=== PATIENT | female | born 1945 | race Caucasian/White ===

== ENCOUNTER → 2020-07-08 13:14 | Outpatient (CLI) | payer MEDICARE, SELFPAY ==
--- NOTE | ~2020-07-08 | MM_ITS ---
EXAMINATION: MM screening [facility] BI w virgilio HISTORY: Screening TECHNIQUE: Craniocaudal and mediolateral oblique 3-D tomosynthesis images were obtained and synthetic 2-D images were generated. CAD analysis was submitted and interpreted. COMPARISON: Comparison to multiple prior studies sequentially, with oldest reviewed study dated 12/24. BREAST PARENCHYMAL COMPOSITION: There are scattered areas of fibroglandular density. FINDINGS: There is no evidence of suspicious mass, calcification, or architectural distortion to sugg est malignancy in either breast. There has been no suspicious interval change. IMPRESSION: 1. No mammographic evidence of malignancy. 2. Recommend routine screening mammography in one year. BI-RADS Category 1: Negative Reviewed, dictated and finalized at location A.
--- NOTE | ~2020-07-08 | DEXA_ITS ---
Bone Density Report Name: Dayana Mota Age: 75 Sex: Female Ethnicity: White Date of : 1945 Indication: postmenopausal; screening for osteoporosis; height loss; hysterectomy; Referring Provider: DANIEL POLANCO Study: Bone densitometry was performed. Exam Date: July 08, 2020 Accession number: [id number] Bone Density: Region BMD T-score Z-score Classification AP Spine (L3, L4) 1.340 2.2 4.7 Normal Femoral Neck (Left) 0.811 -0.3 1.7 Normal Total Hip (Left) 1.007 0.5 2.3 Normal Femoral Neck (Right) 0.772 -0.7 1.3 Normal Total Hip (Right) 0.928 -0.1 1.6 Normal Total Hip Mean 0.968 0.2 2.0 Normal World Health Organization criteria for BMD impression classify patients as: Normal (T-score at or above -1.0), Osteopenia (T-score between -1.0 and -2.5), or Osteoporosis (T-score at or below -2.5). 10-year Fracture Risk: FRAX not reported because: All T-scores for Spine Total, Hip Total, Femoral Neck at or above -1.0 Previous Exams: Region Exam Age BMD T-score BMD Change BMD Change Date g/cm2 vs Baseline vs Previous AP Spine(L3, L4) 07/08/2020 75 1.340 2.2 0.013 -0.085* 01/15/2016 70 1.425 2.9 0.098* 0.052* 11/14/2012 67 1.373 2.5 0.046* 0.082* 10/15/2009 64 1.291 1.7 -0.036* -0.036* 09/28/2006 61 1.327 2.1 Total Hip(Left) 07/08/2020 75 1.007 0.5 0.067* -0.029* 01/15/2016 70 1.036 0.8 0.096* 0.019 11/14/2012 67 1.017 0.6 0.077* 0.007 10/15/2009 64 1.010 0.6 0.070* 0.070* 09/28/2006 61 0.940 0.0 Total Hip(Right) 07/08/2020 75 0.928 -0.1 0.019 -0.023 01/15/2016 70 0.951 0.1 0.042* -0.012 11/14/2012 67 0.964 0.2 0.054* -0.009 10/15/2009 64 0.973 0.3 0.063* 0.063* 09/28/2006 61 0.909 -0.3 *Denotes significance at 95% confidence level, LSC for AP Spine = 0.022 g/cm2, LSC for Total Hip = 0.027 g/cm2 Clinical Information Provided by Patient: Has the following medical conditions: Hysterectomy Patient maximum height was 67.8 Menopause Age: 37 Drinks caffeinated beverages Onset of menses at age 12 Number of children 0 Missed period for more than 6 months in a row Impression: The patient has normal bone mass. The BMD for the AP Spine(L3, L4)
== END ==
PROVIDERS: Visit Provider Obstetrics & Gynecology Gynecology
DX: Z12.31 Encounter for screening mammogram for malignant neoplasm of breast (principal); Z78.0 Asymptomatic menopausal state
CPT/HCPCS: 77063; 77067; 77080

== ENCOUNTER 2020-07-29 17:23 | Emergency (ER) | payer MEDICARE, SELFPAY ==
[2020-07-29 17:29] VITALS: BP 149/91; PULSE 123; RESP 22; TEMP 36.4; O2SAT 100
[2020-07-29 17:33] VITALS: PULSE 125
--- NOTE | 2020-07-29 17:46 | ED.GENADULT ---
HPI - General Adult General Chief complaint: Unspecified Stated complaint: nosebleed Time Seen by Provider: 07/29/20 17:35 History of Present Illness HPI narrative: Seen at urgent yesterday for a nose bleed. She had it packed with gauze and the bleeding was controled. She was planning to go back today to have the packing removed, but she began bleeding again. At the time of my evaluation she has minimal bleeding with the pack still in place. She is not on any blood thinners. She is a jahova's witness and does not want to receive any blood products Related Data Home Medications Medication Instructions Recorded Confirmed ascorbic acid (vitamin C) 500 mg 1,000 mg PO cap 12/04/19 06/03/20 capsule aspirin 81 mg tablet,delayed 81 mg PO DAILY 12/04/19 06/03/20 release cetirizine 10 mg tablet 5 mg PO DAILY PRN 12/04/19 06/03/20 psyllium seed (sugar) 1 tbsp PO DAILY 12/04/19 06/03/20 cholecalciferol (vitamin D3) 10 10 mcg PO DAILY 07/30/20 mcg (400 unit) capsule acetaminophen 325 mg capsule 325 mg PO Q6H PRN 08/01/20 Allergies Allergy/AdvReac Type Severity Reaction Status Date / Time hydrochlorothiazide Allergy Unknown hyponatremi Verified 08/01/20 11:13 a latex Allergy Unknown Skin Verified 08/01/20 11:13 Reaction lisinopril Allergy Unknown cough Verified 08/01/20 11:13 potassium iodide Allergy Unknown cough Verified 08/01/20 11:13 Review of Systems Review of Systems: All systems reviewed & are unremarkable except as noted in HPI and below Constitutional: Constitutional: Denies fever(s) and Denies weakness ENT: Reports dizziness Cardiovascular: Cardiovascular: Denies chest pain Respiratory: Respiratory: Denies dyspnea Gastrointestinal: Gastrointestinal: Denies nausea and Denies vomiting Neurologic: Denies syncope and Denies weakness Hematologic/Lymphatic: Hematologic/Lymphatic: Denies easy bleeding and Denies easy bruising PMFSH Past Medical History Medical History History of mammogram (~01/19/17) History of measles History of varicella Ovarian cyst (~1971) Wears glasses Surgical History Surgical History History of appendectomy History of hysterectomy (~1980) Family History Family History Mother Diabetes mellitus, Onset Age: 69 Family history of multiple sclerosis Sibling Depression Father Hypertension Acute myocardial infarction, Onset Age: 72 Cerebrovascular accident Grandparent Carcinoma of colon Family history of malignant neoplasm of uterus Social History Social History Smoking status: Never smoker Alcohol intake: current Gender identity (if verbalized by the patient): Female Exam Const: General: healthy appearing, no acute distress and alert Orientation/consciousness: patient oriented x3 HENMT: Other: Gauze packing in place with minimal bleeding Resp: Effort & Inspection: normal respiratory effort Auscultation: clear to auscultation bilaterally Cardio: Rate: tachycardic Rhythm: regular rhythm Skin: General skin exam: normal color Neuro: General: patient oriented x3, moves all extremities and CN's II-XI intact bilaterally Speech: normal speech Extrem: General: normal to inspection Course Vital Signs Vital signs: Vital Signs Temperature 36.4 C L 07/29/20 17:29 Pulse Rate 123 H 07/29/20 17:29 Respiratory Rate 22 H 07/29/20 17:29 Blood Pressure 149/91 H 07/29/20 17:29 Pulse Oximetry 100 07/29/20 17:29 Temperature 36.4 C L 07/29/20 17:29 Pulse Rate 106 H 07/29/20 19:15 Respiratory Rate 16 07/29/20 19:15 Blood Pressure 146/86 H 07/29/20 19:15 Pulse Oximetry 99 07/29/20 19:15 Procedures Epistaxis Control right: Nose Prepped With: oxymetazoline Epistaxis Control Yemi
[2020-07-29 18:45] VITALS: BP 130/79; PULSE 107; RESP 12; O2SAT 97
[2020-07-29 19:15] VITALS: BP 146/86; PULSE 106; RESP 16; O2SAT 99
== END 2020-07-29 19:55 | disposition home or self-care (01) ==
PROVIDERS: Emergency Provider Emergency Medicine; PCP Family Medicine
DX: R04.0 Epistaxis (principal)
CPT/HCPCS: 99283; A9270

== ENCOUNTER 2020-07-30 04:09 | Emergency (ER) | payer MEDICARE, SELFPAY ==
[2020-07-30 04:16] VITALS: BP 91/52; PULSE 135; RESP 21; TEMP 36.3; O2SAT 97
--- NOTE | 2020-07-30 04:20 | PC.NURSE ---
during PIV administration pt states she is starting to become dizzy and lightheaded. pt placed in trendelenburg at bedside. fluids initiated at this time. pt noted to be hypotensive and tachycardic. pt responsive to fluids and position change. rhino rocket placed by
[2020-07-30] MEDS: SODIUM CHLORIDE 0.9% IV 1,000 ML 999 ML (05:08)
--- NOTE | 2020-07-30 05:08 | PC.NURSE ---
fluids administered per MD verbal order
[2020-07-30 05:13] LABS: Basophils Percent Auto 0.4 % (0.2-1.2); Eosinophils Absolute Auto 0.1 K/mm3 (0-0.3); Eosinophils Percent Auto 0.7 % (0-4.4); Hematocrit 27.3 % (37.0-47.0); Hemoglobin 9.3 g/dL (12.0-15.0); Immature Granulocyte Absolute 0.04 K/mm3 (0.00-0.031); Immature Granulocyte Percent A 0.5 % (0-0.5); Lymphocytes Absolute Auto 1.88 K/mm3 (0.9-3.2); Lymphocytes Percent Auto 22.7 % (18.3-44.2); Mean Corpuscular HGB Conc 34.1 g/dl (32-36); Mean Corpuscular Hemoglobin 30.8 pg (26-34); Mean Corpuscular Volume 90.4 fl (80-100); Mean Platelet Volume 8.7 fl (7.4-10.4); Monocytes Absolute Auto 0.6 K/mm3 (0.1-0.6); Monocytes Percent Auto 6.6 % (2.6-8.5); Neutrophils Absolute Auto 5.7 K/mm3 (1.3-6.7); Neutrophils Percent Auto 69.1 % (45.5-73.1); Platelet Count Result 232 k/mm3 (150-375); Red Blood Count 3.02 M/mm3 (4.2-5.4); Red Cell Distribution Width 12.5 % (11.5-14.5); White Blood Count 8.3 K/mm3 (4.5-10.0)
--- NOTE | 2020-07-30 05:16 | PC.NURSE ---
pt states bleeding is minimal at this time. c/o minimal drainage in back of throat. vs remain stable. pt hooked up to monitor, will continue to monitor pt for baseline status changes.
[2020-07-30 05:25] LABS: INR 1.1; Prothrombin Time 14.2 Seconds (11.1-14.7)
[2020-07-30 05:26] LABS: Partial Thromboplastin Time 29.4 SECONDS (22.3-36.8); Potassium 4.1 mmol/L (3.4-5.0)
[2020-07-30 05:50] LABS: Anion Gap 7 mmol/L (8-16); Blood Urea Nitrogen 24 mg/dL (7-17); Calcium 8.6 mg/dL (8.4-10.2); Carbon Dioxide 23 mmol/L (22-30); Chloride 101 mmol/L (98-107); Estimated CRCL calculation 56 ml/min; Estimated Glomerular Filt Rate > 60; Glucose 120 mg/dL (65-105); Sodium 131 mmol/L (137-145)
[2020-07-30 05:54] VITALS: BP 128/70; BP 136/68; PULSE 100; PULSE 106
[2020-07-30] MEDS: SODIUM CHLORIDE 0.9% IV 1,000 ML 999 ML IV CONT (05:54)
[2020-07-30 05:55] VITALS: BP 110/67; PULSE 114
[2020-07-30 06:17] VITALS: BP 142/84; PULSE 102; RESP 18; O2SAT 100
--- NOTE | 2020-07-30 06:35 | ED.EPISTAXIS ---
HPI - Epistaxis General Chief complaint: Epistaxis Stated complaint: nose bleed Time Seen by Provider: 07/30/20 04:53 History of Present Illness HPI Narrative: Patient is a 75-year-old female who presents ER with epistaxis. Patient reports her nosebleed began on 07/27/2020. It worsened on the and continued into 29 July. She had packing of the anterior right nostril performed on 07/28 in urgent care. She was seen yesterday evening in the ER for continued trickling from her nose. She was given referral to ENT. Bleeding increased this evening and she had a large expulsion of blood from her mouth and nose so she opted to come to the ER again. Related Data Home Medications Medication Instructions Recorded Confirmed ascorbic acid (vitamin C) 500 mg 1,000 mg PO cap 12/04/19 06/03/20 capsule aspirin 81 mg tablet,delayed 81 mg PO DAILY 12/04/19 06/03/20 release cetirizine 10 mg tablet 5 mg PO DAILY PRN 12/04/19 06/03/20 ibuprofen 200 mg tablet 200 mg PO Q6H PRN 12/04/19 06/03/20 psyllium seed (sugar) 1 tbsp PO DAILY 12/04/19 06/03/20 Allergies Allergy/AdvReac Type Severity Reaction Status Date / Time hydrochlorothiazide Allergy Unknown hyponatremi Verified 07/29/20 17:33 a latex Allergy Unknown Skin Verified 07/29/20 17:33 Reaction lisinopril Allergy Unknown cough Verified 07/29/20 17:33 potassium iodide Allergy Unknown cough Verified 07/29/20 17:33 Review of Systems ENT: Reports epistaxis and Denies nasal congestion Respiratory: Respiratory: Denies cough and Denies dyspnea Gastrointestinal: Gastrointestinal: Denies abdominal pain, Denies diarrhea, Denies nausea and Denies vomiting Neurologic: Reports dizziness PMFSH Past Medical History Medical History (Updated 07/30/20 @ 07:22 by David Willett MD) History of mammogram (~01/19/17) History of measles History of varicella Ovarian cyst (~1971) Wears glasses Surgical History Surgical History (Updated 12/04/19 @ 14:07 by Felicity Hernandez [facility]) History of appendectomy History of hysterectomy (~1980) Family History Family History (Updated 02/20/18 @ 14:29 by DOCTOR UNKNOWN) Mother Diabetes mellitus, Onset Age: 69 Family history of multiple sclerosis Sibling Depression Father Hypertension Acute myocardial infarction, Onset Age: 72 Cerebrovascular accident Grandparent Carcinoma of colon Family history of malignant neoplasm of uterus Social History Social History Smoking status: Never smoker Alcohol intake: current Gender identity (if verbalized by the patient): Female Exam Narrative: Exam Narrative: GENERAL: ill-appearing, well-nourished, and in moderate distress. HEAD: Normocephalic, atraumatic. EYES: PERRLAand EOMI. ENT: Mucous membranes moist. Right nostril packed with slight oozing. There is a oozing coming from the left nostril as well. CHEST: Clear to auscultation. No respiratory distress. HEART: Tachycardic and regular. Normal peripheral pulses.. EXTREMITIES: Normal range of motion. No edema. SKIN: Warm, diaphoretic, no rash. NEURO: Alert and oriented x3. Course Course Emergency Course: Patient received 1 L IV fluid. She was orthostatic afterwards. Additional liter ordered. Reevaluation(s) Reevaluation #1: Patient resting comfortably. No recurrence of bleeding after Rhino Rocket placement. Has received 2 L of IV fluid. I discussed case with Dr. Chavez with ENT. He is aware of patient's presentation, work-up, and intervention. He recommends patient be seen in his office today. Discussed treatment plan with patient she is verbalized understanding and is comfortable with that plan. Date: 07/30/20 Time: 07:17 Vital Signs Vital signs: Vital Signs Temperature 97.3 F L 07/30/20 04:16 Pulse Rate 135 H 07/30/20 04:16 Respiratory Rate 21 H 07/30/20 04:16 Blood Pressure 91/52 L 07/30/20 04:16 Pulse Oximetry 97 07/30/20 04:16 Temperature 97.3 F L 07/30/20 04:16 Pulse
--- NOTE | 2020-07-30 06:55 | PC.NURSE ---
assisted pt to restroom at this time. pt denies dizziness. ambulates with steady gait.
[2020-07-30 06:56] VITALS: BP 127/75; PULSE 105; RESP 17; O2SAT 100
[2020-07-30 07:40] VITALS: BP 144/83; PULSE 104; RESP 19; O2SAT 97
--- NOTE | 2020-07-30 10:34 | ECG_ITS ---
Measurements Intervals [place] Rate: 109 P: 52 ND: 144 QRS: 28 QRSD: 114 T: 54 QT: 320 QTc: 432 Interpretive Statements SINUS TACHYCARDIA INTRAVENTRICULAR CONDUCTION DELAY BORDERLINE ST ABNORMALITY- ANTEROLAT/INF LEADS ABNORMAL ECG Electronically Signed On 07-30-2020 10:44:47 CDT by Ashutosh Avery D.O.
== END 2020-07-30 07:40 | disposition home or self-care (01) ==
PROVIDERS: Emergency Provider Emergency Medicine; PCP Family Medicine
DX: R04.0 Epistaxis (principal); R00.0 Tachycardia, unspecified; I45.9 Conduction disorder, unspecified; R94.31 Abnormal electrocardiogram [ECG] [EKG]
CPT/HCPCS: 30901; 36415; 80048; 85025; 85610; 85730; 86850; 86900; 86901; 93005; 99283; J7030

== ENCOUNTER → 2021-03-25 09:56 | Outpatient (CLI) | payer MEDICARE, SELFPAY ==
--- NOTE | ~2021-03-25 | XR_ITS ---
XR abdomen/kub 1V 03/25/2021 10:49 INDICATION: Microscopic hematuria TECHNIQUE: KUB COMPARISON: None FINDINGS: Bowel gas pattern is normal. There is no evidence of free air, mass, organomegaly, ascites or obstruction. No abnormal calculi are seen. The bones appear intact. Moderate lumbar spondylosis . IMPRESSION: 1: No acute abdominal abnormality identified. Reviewed, dictated and finalized at location B.
--- NOTE | ~2021-03-25 | CT_ITS ---
EXAMINATION: CT abdomen pelvis wo/w con DATE: 03/25/2021 10:49 INDICATION: Microscopic hematuria TECHNIQUE: Computed tomography (CT) of the abdomen and pelvis was performed without and with 130 cc O mnipaque 350 intravenous contrast. The dose-length product was 1700.18 mGy-cm. Automated exposure con trol and iterative reconstruction technique were employed. COMPARISON: None. FINDINGS: There are liver and right renal cysts. Lung bases unremarkable. There is atherosclerosis wi thout evidence for aneurysm. Colonic diverticulosis without evidence for diverticulitis. Fatty infiltration of the liver. There are gallstones. Calcified granulomas of the spleen. The pancre as, adrenal glands and left kidney are unremarkable. Ureters are normal in course and caliber. Bladde r is unremarkable. Nonobstructive bowel gas pattern. No free air or free fluid. There is an 11 mm lef t lower lobe nodule containing calcification and possible macroscopic fat, most likely benign calcifi ed granuloma or hamartoma. No lymphadenopathy. IMPRESSION: 1. No findings to account for hematuria. 2: Cholelithiasis. 3: Hepatic steatosis. Reviewed, dictated and finalized at location B.
[2021-03-25 10:26] LABS: Estimated Glomerular Filt Rate > 60
== END ==
PROVIDERS: PCP Family Medicine; Visit Provider Urology
DX: R31.29 Other microscopic hematuria (principal); K80.20 Calculus of gallbladder without cholecystitis without obstruction; K76.0 Fatty (change of) liver, not elsewhere classified
CPT/HCPCS: 74018; 74178; Q9967

== ENCOUNTER → 2021-04-10 02:32 | Outpatient (CLI) | payer MEDICARE, SELFPAY ==
[2021-04-10 19:36] LABS: SARS-CoV-2 RNA PCR Negative
== END ==
PROVIDERS: PCP Family Medicine; Visit Provider Internal Medicine Gastroenterology
DX: Z01.812 Encounter for preprocedural laboratory examination (principal); Z20.822 Contact with and (suspected) exposure to COVID-19
CPT/HCPCS: C9803; U0003; U0005

== ENCOUNTER 2021-04-13 02:01 | Day surgery (SDC) | payer MEDICARE, SELFPAY ==
[2021-03-31 15:02] VITALS: BMI 28.8
[2021-04-13 06:34] VITALS: BP 156/81; PULSE 111; RESP 18; TEMP 36.2; O2SAT 98; BMI 28.3
[2021-04-13] MEDS: LACTATED RINGERS 1,000 ML 150 ML IV CONT (06:48)
--- NOTE | 2021-04-13 07:22 | WPDANESEPPF ---
Anes - Initial Pre Proc Eval Procedure: Operation Date: 04/13/21 07:30 Proposed Procedures p Screening Colonoscopy - Santos Ribera MD Date/Time: 04/13/21 07:22 Surgeon: Santos Ribera MD Pre Op Diagnosis: Neoplasm Screening Patient Data Age: 75 Gender: F Height: 5 ft 5 in Weight: 77.4 kg Last Vital Signs Temp 97.1 F L 04/13/21 06:34 Pulse 111 H 04/13/21 06:34 Resp 18 04/13/21 06:34 BP 156/81 H 04/13/21 06:34 Pulse Ox 98 04/13/21 06:34 Allergies Allergy/AdvReac Type Severity Reaction Status Date / Time hydrochlorothiazide Allergy Unknown hyponatremi Verified 04/13/21 06:31 a latex Allergy Unknown Skin Verified 04/13/21 06:31 Reaction lisinopril Allergy Unknown cough Verified 04/13/21 06:31 potassium iodide Allergy Unknown cough Verified 04/13/21 06:31 aspirin AdvReac recurrent Verified 04/13/21 06:31 [From [facility]] nose bleeds: packing, cautery Home Medications Medication Instructions Recorded Confirmed Type cetirizine 10 mg tablet 5 mg PO DAILY PRN 12/04/19 04/13/21 History psyllium seed (sugar) oral powder 1 tbsp PO DAILY 12/04/19 04/13/21 History metoprolol succinate 50 mg 50 mg PO DAILY #90 tablet 05/06/20 04/13/21 Rx tablet,extended release 24 hr cholecalciferol (vitamin D3) 10 10 mcg PO DAILY 07/30/20 04/13/21 History mcg (400 unit) capsule acetaminophen 325 mg capsule 325 mg PO Q6H PRN 08/01/20 04/13/21 History ascorbic acid (vitamin C) 1,000 mg 1 g PO DAILY 12/09/20 04/13/21 History tablet spironolactone 50 mg tablet 50 mg PO DAILY #90 tablet 12/09/20 04/13/21 Rx sodium,potassium,mag sulfates See Rx Instructions .ROUTE 12/18/20 Rx [Suprep Bowel Prep Kit] .COMPLEX #1 ml Patient hx anesthesia problems: none Family hx anesthesia problems: none PMFSH Past Medical History Medical History (Updated 12/09/20 @ 11:45 by Jake Kim PA-C) History of mammogram (~01/19/17) History of measles History of varicella Obesity (BMI 30.0-34.9) Ovarian cyst (~1971) Wears glasses Surgical History Surgical History History of appendectomy History of hysterectomy (~1980) Family History Family History Mother Diabetes mellitus, Onset Age: 69 Family history of multiple sclerosis Sibling Depression Father Hypertension Acute myocardial infarction, Onset Age: 72 Cerebrovascular accident Grandparent Carcinoma of colon Family history of malignant neoplasm of uterus Social History Social History Smoking status: Never smoker Alcohol intake: current Substance use type: does not use Living arrangements: with family Gender identity (if verbalized by the patient): Female Spiritual care concerns: No Anes - Eval Final PreProcedure Day of Procedure 04/13/21 07:22 Patient weight: normal Heart: regular rate and rhythm Lungs: clear to auscultation Airway: Mallampati scale class II Neurological: alert and oriented Last oral intake: >/= 8 hours ASA classification: II Emergent: no Anesthetic plan: proceed Anesthesia type and monitoring: general GIVS and standard monitoring Informed Consent: The patient's anesthetic plan and its attendant risks and benefits were discussed with the patient/family/POA. Questions were solicited and answers provided to the satisfaction of the patient/family/POA.
--- NOTE | 2021-04-13 08:06 | WPDGICN ---
Assessment and Plan Assessment and plan (1) Encounter for screening colonoscopy: Code(s): Z12.11 - Encounter for screening for malignant neoplasm of colon Status: Acute Assessment and Plan: Patient presents today for screening colonoscopy. He has been 10 years since last exam. According to her history she appears to be at average risk for colon polyps. Further recommendations will be given after endoscopy. (2) IBS (irritable bowel syndrome): Code(s): K58.9 - Irritable bowel syndrome without diarrhea Status: Acute Assessment and Plan: Patient has a long history of irregular bowel movements. Plan is for screening colonoscopy. High-fiber diet is advised. Fiber supplements may be beneficial. GI Consult Note Consult date/time: 04/13/21 08:06 HPI: Dayana Mota is a 75 year old female Seen in evaluation at the request of Dr. Mike Cheek. Patient presents for neoplasia screening. Patient reports her current weight appetite bowel movements are unchanged. She has a lifelong history of irregular bowel movements. Diarrhea alternates with constipation. She denies any bleeding. Her weight remains stable. Her last colonoscopy was 10 years ago 2010. Family history is noncontributory. Patient presents today for screening colonoscopy. Review of Systems Review of Systems: All systems reviewed & are unremarkable except as noted in HPI and below PMFSH Past Medical History Medical History (Updated 04/13/21 @ 08:07 by Santos Ribera MD) History of mammogram (~01/19/17) History of measles History of varicella Obesity (BMI 30.0-34.9) Ovarian cyst (~1971) Wears glasses Surgical History Surgical History History of appendectomy History of hysterectomy (~1980) Family History Family History Mother Diabetes mellitus, Onset Age: 69 Family history of multiple sclerosis Sibling Depression Father Hypertension Acute myocardial infarction, Onset Age: 72 Cerebrovascular accident Grandparent Carcinoma of colon Family history of malignant neoplasm of uterus Social History Social History Smoking status: Never smoker Alcohol intake: current Substance use type: does not use Living arrangements: with family Gender identity (if verbalized by the patient): Female Spiritual care concerns: No Meds Home Medications and Allergies Home Medications Medication Instructions Recorded Confirmed Type cetirizine 10 mg tablet 5 mg PO DAILY PRN 12/04/19 04/13/21 History psyllium seed (sugar) oral powder 1 tbsp PO DAILY 12/04/19 04/13/21 History metoprolol succinate 50 mg 50 mg PO DAILY #90 tablet 05/06/20 04/13/21 Rx tablet,extended release 24 hr cholecalciferol (vitamin D3) 10 10 mcg PO DAILY 07/30/20 04/13/21 History mcg (400 unit) capsule acetaminophen 325 mg capsule 325 mg PO Q6H PRN 08/01/20 04/13/21 History ascorbic acid (vitamin C) 1,000 mg 1 g PO DAILY 12/09/20 04/13/21 History tablet spironolactone 50 mg tablet 50 mg PO DAILY #90 tablet 12/09/20 04/13/21 Rx sodium,potassium,mag sulfates See Rx Instructions .ROUTE 12/18/20 Rx [Suprep Bowel Prep Kit] .COMPLEX #1 ml Allergies Allergy/AdvReac Type Severity Reaction Status Date / Time hydrochlorothiazide Allergy Unknown hyponatremi Verified 04/13/21 06:31 a latex Allergy Unknown Skin Verified 04/13/21 06:31 Reaction lisinopril Allergy Unknown cough Verified 04/13/21 06:31 potassium iodide Allergy Unknown cough Verified 04/13/21 06:31 aspirin AdvReac recurrent Verified 04/13/21 06:31 [From [facility]] nose bleeds: packing, cautery Vital Signs Vital Signs - 24 hr 04/13/21 06:34 Temperature 97.1 F L Pulse Rate 111 H Respiratory Rate 18 Blood Pressure 156/81 H Pulse Oximetry 98 Exam Narr
[2021-04-13 08:08] VITALS: BP 91/43; PULSE 73; RESP 23; O2SAT 97
[2021-04-13 08:18] VITALS: BP 102/48; PULSE 76; RESP 22; O2SAT 100
[2021-04-13 08:28] VITALS: BP 117/60; PULSE 72; RESP 15; O2SAT 100
== END 2021-04-13 08:45 | disposition home or self-care (01) ==
PROVIDERS: PCP Family Medicine; Visit Provider Internal Medicine Gastroenterology
PROC: 0DJD8ZZ Inspection of Lower Intestinal Tract, Via Natural or Artificial Opening Endoscopic (ICD-10-PCS; CPT 45378; principal; 2021-04-13 07:30)
DX: Z12.11 Encounter for screening for malignant neoplasm of colon (principal); D12.2 Benign neoplasm of ascending colon; D12.0 Benign neoplasm of cecum; K57.30 Diverticulosis of large intestine without perforation or abscess without bleeding; K58.9 Irritable bowel syndrome, unspecified; E66.9 Obesity, unspecified; Z90.710 Acquired absence of both cervix and uterus; Z90.49 Acquired absence of other specified parts of digestive tract; K64.8 Other hemorrhoids
CPT/HCPCS: 45385; 88305; J2001; J2704; J7120

== ENCOUNTER → 2021-06-10 11:11 | Outpatient (CLI) | payer MEDICARE, SELFPAY ==
--- NOTE | ~2021-06-10 | XR_ITS ---
XR hand BI arthritis min 3V DATE: 06/10/2021 12:19 INDICATION: Bilateral hand joint pain TECHNIQUE: 4 views of each hand COMPARISON: None FINDINGS: Right hand: There is mild osteoarthritic change at the first carpometacarpal joint, first metacarpophalangeal and interphalangeal joints. There is severe osteoarthritic change including virtual obliteration of joint space and very prominen t spurring at the third metacarpophalangeal joint. Similar change and additional medial subluxation a s are the proximal interphalangeal joint of the third digit. There is prominent osteoarthritic change at the remaining interphalangeal joints. No fracture or dislocation, periosteal reaction or bone destruction, erosive change or chondrocalcino sis. Left hand: There is severe osteoarthritic change at the first carpometacarpal and first metacarpophalangeal cole nts. There is osteoarthritic change at the proximal and distal interphalangeal joints throughout the left hand. No fracture or dislocation, periosteal reaction or bone destruction, chondrocalcinosis or erosive shea nge is evident. IMPRESSION: Polyarticular osteoarthritis of the right hand, most severe at the third metacarpophalang eal and third proximal interphalangeal joints Polyarticular osteoarthritis of the left hand, most prominent at the first carpometacarpal joint Reviewed, dictated and finalized at location B. IMPRESSION: Polyarticular osteoarthritis of the right hand, most severe at the third metacarpophalangeal and third proximal interphalangeal joints Polyarticular osteoarthritis of the left hand, most prominent at the first carp ometacarpal joint
== END ==
PROVIDERS: PCP Family Medicine; Visit Provider Family Medicine
DX: M25.541 Pain in joints of right hand (principal); M25.542 Pain in joints of left hand; M19.042 Primary osteoarthritis, left hand; M19.041 Primary osteoarthritis, right hand
CPT/HCPCS: 73130

== ENCOUNTER → 2021-07-22 14:44 | Outpatient (CLI) | payer MEDICARE, SELFPAY ==
--- NOTE | ~2021-07-22 | MM_ITS ---
EXAMINATION: MM screening [facility] BI w virgilio HISTORY: Screening mammogram TECHNIQUE: Craniocaudal and mediolateral oblique 3-D tomosynthesis images were obtained and synthetic 2-D images were generated. CAD analysis was submitted and interpreted. COMPARISON: 07/08/2020, 02/06/2019, 01/17/2017 BREAST PARENCHYMAL COMPOSITION: There are scattered areas of fibroglandular density. FINDINGS: There is no evidence of suspicious mass, calcification, or architectural distortion to sugg est malignancy in either breast. There has been no suspicious interval change. IMPRESSION: 1. No mammographic evidence of malignancy. 2. Recommend routine screening mammography in one year. BI-RADS Category 1: Negative Reviewed, dictated and finalized at location A.
== END ==
PROVIDERS: PCP Family Medicine; Visit Provider Obstetrics & Gynecology Gynecology
DX: Z12.31 Encounter for screening mammogram for malignant neoplasm of breast (principal)
CPT/HCPCS: 77063; 77067

== ENCOUNTER → 2022-07-28 10:11 | Outpatient (CLI) | payer MEDICARE, SELFPAY ==
--- NOTE | ~2022-07-28 | MM_ITS ---
EXAMINATION: MM screening [facility] BI w virgilio HISTORY: Screening mammogram TECHNIQUE: Craniocaudal and mediolateral oblique 3-D tomosynthesis images were obtained and synthetic 2-D images were generated. CAD analysis was submitted and interpreted. COMPARISON: 07/22/2021, 07/08/2020, 02/06/2019 BREAST PARENCHYMAL COMPOSITION: There are scattered areas of fibroglandular density. FINDINGS: There is no suspicious mass, calcification, or architectural distortion to suggest malignan cy in either breast. There has been no suspicious interval change. IMPRESSION: 1. No mammographic evidence of malignancy. 2. Recommend routine screening mammography in one year. BI-RADS Category 1: Negative Reviewed, dictated and finalized at location A.
== END ==
PROVIDERS: PCP Family Medicine; Visit Provider Obstetrics & Gynecology Gynecology
DX: Z12.31 Encounter for screening mammogram for malignant neoplasm of breast (principal)
CPT/HCPCS: 77063; 77067

== ENCOUNTER 2023-07-06 08:10 | Outpatient (CLI) | payer MEDICARE, SELFPAY ==
--- NOTE | 2023-07-27 10:15 | WPDSLEEPSTUD ---
Sleep Study Date of Study: 07/06/23 Ordering Provider: Ghazal Cheek MD Interpreting Physician: Destiney Sheriff MD Sleep Study Type: Split Polysomnogram Height: 1.65 m Weight: 78.925 kg Body Mass Index: 28.9 Neck Circumference (inches): 15 [place]: 6 Reason for Sleep Study Witnessed apneas, gasping at night Sleep History Dayana Mota is a 78-year-old woman with hypertension who reports that her witnessed her not breathing at night. She wakes up during the night. She does not wake up feeling short of breath, nor does she wake at night with heartburn, belching or coughing. She frequently snores loudly enough that he complains about it. She occasionally has difficulty sleeping with a cold. She does not wake up choking. she occasionally has breathing problems at night observed by others. She does not sweat excessively at night or notice her heart pounding or beating irregularly at night. She occasionally falls asleep during the day, occasionally falls asleep involuntarily, does not fall asleep while driving. She does not have loss of muscle tone with strong emotion. She does not have daytime difficulties due to excessive sleepiness. She does not feel paralyzed on waking or falling asleep. She rarely has vivid dreamlike scenes on waking or falling asleep. She does not feel afraid to go to sleep. She rarely has nightmares. She rarely remembers her dreams. She rarely has racing thoughts. She occasionally feels sad, depressed or anxious. She occasionally has muscular tension. She does not notice parts of her body jerking, she does not kick at night or have crawling or aching feelings in her legs. She does not have any kind of leg pain at night. She does not have morning jaw pain. She does not grind her teeth at night. She frequently is bothered by pain during the day. She rarely is awakened by pain at night. She constantly wakes up feeling stiff in the morning. She frequently awakens with sore achy muscles and pain in the neck and spine. Sometimes she has concentration difficulties, memory problems, often has fatigue. She has headaches. Normal bedtime is 12 midnight taking 1/2 hour to fall asleep. She wakes at least once during the night to go to the bathroom. When back in bed it may take her a 1/2 hour or longer to return to sleep. Her normal wake time is between 5:30 a.m. and 7:00 a.m.. She keeps the same schedule on weekends. She takes naps in the afternoon or evening. A short nap lasting 10 or 15 minutes is not refreshing. She has not had any change in weight during the last year. She has chronic pain from arthritis. She has seasonal allergies. Habits: Never smoker. Caffeine 2 cups of coffee and 2 glasses of tea daily. No alcohol or recreational substances. [facility] Past Medical History Medical History Allergic rhinitis Cataract History of mammogram (~01/19/17) History of measles History of varicella Nasal obstruction Nasal septal deviation Ovarian cyst (~1971) Wears glasses Surgical History Surgical History History of appendectomy History of hysterectomy (~1980) Hx of colonoscopy 5.17.21/ polyps. repeat in 3 years. Family History Family History Mother Diabetes mellitus, Onset Age: 69 Family history of multiple sclerosis Sibling Depression Father Hypertension Acute myocardial infarction, Onset Age: 72 Cerebrovascular accident Grandparent Carcinoma of colon Family history of malignant neoplasm of uterus Social History Social History Smoking status: Never smoker Second hand tobacco smoke exposure: Yes Alcohol intake: current Substance use type: does not use Lack of Transportation: No Lack of Food: Never True Concerned About Future Ho
[2023-07-27 12:46] VITALS: BMI 28.9
== END 2023-07-07 07:30 | disposition home or self-care (01) ==
LOC: ANHCSM 08:11
PROVIDERS: PCP Family Medicine; Visit Provider Family Medicine
DX: G47.30 Sleep apnea, unspecified (principal); I10 Essential (primary) hypertension; E55.9 Vitamin D deficiency, unspecified; E66.3 Overweight; B35.1 Tinea unguium; Q66.89 Other specified congenital deformities of feet; Z68.28 Body mass index [BMI] 28.0-28.9, adult
CPT/HCPCS: 95810; 95811

== ENCOUNTER → 2023-08-11 10:08 | Outpatient (CLI) | payer MEDICARE, SELFPAY ==
--- NOTE | ~2023-08-11 | MM_ITS ---
EXAMINATION: MM screening jodi BI w virgilio HISTORY: Screening mammogram TECHNIQUE: Craniocaudal and mediolateral oblique 3-D tomosynthesis images were obtained and synthetic 2-D images were generated. CAD analysis was submitted and interpreted. COMPARISON: 07/28/2022, 07/22/2021, 07/08/2020 bilateral screening mammogram examinations BREAST PARENCHYMAL COMPOSITION: There are scattered areas of fibroglandular density. FINDINGS: There is no evidence of suspicious mass, calcification, or architectural distortion to sugg est malignancy in either breast. There has been no suspicious interval change. IMPRESSION: 1. No mammographic evidence of malignancy. 2. Recommend routine screening mammography in one year. BI-RADS Category 1: Negative Reviewed, dictated and finalized at location A.
== END ==
PROVIDERS: PCP Obstetrics & Gynecology Gynecology; Visit Provider Obstetrics & Gynecology Gynecology
DX: Z12.31 Encounter for screening mammogram for malignant neoplasm of breast (principal)
CPT/HCPCS: 77063; 77067

== ENCOUNTER 2023-09-29 11:25 | Outpatient (CLI) | payer MEDICARE, SELFPAY ==
[2023-09-29 12:03] LABS: Alanine Aminotransferase 14 U/L (6-35); Aspartate Amino Transferase 34 U/L (14-36)
== END 2023-09-29 11:26 | disposition home or self-care (01) ==
LOC: ANHLAB 11:29
PROVIDERS: PCP Family Medicine; Visit Provider Podiatrist Foot & Ankle Surgery
DX: B35.1 Tinea unguium (principal)
CPT/HCPCS: 36415; 84450; 84460

== ENCOUNTER 2024-02-02 10:01 | Outpatient (CLI) | payer MEDICARE, SELFPAY ==
[2024-02-02 11:19] LABS: Alanine Aminotransferase 14 U/L (6-35); Aspartate Amino Transferase 31 U/L (14-36)
== END 2024-02-02 10:02 | disposition home or self-care (01) ==
LOC: ANHLAB 10:04
PROVIDERS: PCP Family Medicine; Visit Provider Podiatrist Foot & Ankle Surgery
DX: B35.1 Tinea unguium (principal)
CPT/HCPCS: 36415; 84450; 84460

== ENCOUNTER 2024-08-16 10:29 | Outpatient (CLI) | payer MEDICARE, SELFPAY ==
--- NOTE | ~2024-08-16 | MM_ITS ---
EXAMINATION: MM screening jodi BI w virgilio HISTORY: Screening mammogram TECHNIQUE: Craniocaudal and mediolateral oblique 3-D tomosynthesis images were obtained and synthetic 2-D images were generated. CAD analysis was submitted and interpreted. COMPARISON: 08/11/2023, 07/28/2022, 07/22/2021 BREAST PARENCHYMAL COMPOSITION:Not Dense. The breasts are almost entirely fatty FINDINGS: No suspicious mass, calcification, or architectural distortion are identified in either oleg ast to suggest malignancy. There has been no suspicious interval change. IMPRESSION: No mammographic evidence of malignancy. Recommend routine screening mammography in one year. BI-RADS Category 1: Negative Reviewed, dictated and finalized at location .
== END 2024-08-16 10:30 | disposition home or self-care (01) ==
PROVIDERS: PCP Obstetrics & Gynecology Gynecology; Visit Provider Family Medicine
DX: Z12.31 Encounter for screening mammogram for malignant neoplasm of breast (principal); Z78.0 Asymptomatic menopausal state
CPT/HCPCS: 77063; 77067

== ENCOUNTER 2024-10-01 00:19 | Day surgery (SDC) | payer MEDICARE, SELFPAY ==
[2024-09-20 13:29] VITALS: BMI 29.2
[2024-10-01 08:08] VITALS: BP 172/84; PULSE 86; RESP 22; TEMP 36.4; O2SAT 100; BMI 28.3
[2024-10-01] MEDS: LACTATED RINGERS 1,000 ML 150 ML IV CONT (08:12)
--- NOTE | 2024-10-01 08:15 | P.PNAN_ITS ---
Anes - Initial Pre Proc Eval Procedure: Operation Date: 10/01/24 09:00 Proposed Procedures p Colonoscopy - Gabriel Nicolas MD Date/Time: 10/01/24 08:15 Surgeon: Gabriel Nicolas MD Pre Op Diagnosis: Pers. Hx. Colon Polyps Patient Data Age: 79 Gender: F Height: 1.65 m Weight: 77.1 kg Last Vital Signs Temp 36.4 C 10/01/24 08:08 Pulse 86 10/01/24 08:08 Resp 22 H 10/01/24 08:08 BP 172/84 H 10/01/24 08:08 Pulse Ox 100 10/01/24 08:08 O2 Del Method Room Air 10/01/24 08:08 Allergies Allergy/AdvReac Type Severity Reaction Status Date / Time hydrochlorothiazide Allergy Unknown hyponatremi Verified 10/01/24 08:07 a latex Allergy Unknown Skin Verified 10/01/24 08:07 Reaction lisinopril Allergy Unknown cough Verified 10/01/24 08:07 potassium iodide Allergy Unknown cough Verified 10/01/24 08:07 aspirin AdvReac recurrent Verified 10/01/24 08:07 [From [facility]] nose bleeds: packing, cautery Home Medications Medication Instructions Recorded Confirmed Type cetirizine 10 mg tablet (Zyrtec) 5 mg PO DAILY PRN Allergic Symptoms 12/04/19 10/01/24 History psyllium seed (sugar) oral powder 1 tbsp PO DAILY 12/04/19 10/01/24 History (Metamucil [place] oral powder) acetaminophen 325 mg capsule 325 mg PO Q6H PRN Pain 08/01/20 10/01/24 History (Tylenol) cholecalciferol (vitamin D3) 1,250 See Rx Instructions PO .COMPLEX 12/23/22 10/01/24 History mcg (50,000 unit) capsule cpap #1 ea 07/27/23 10/01/24 Rx metoprolol succinate 50 mg See Rx Instructions .Route 10/27/23 10/01/24 Rx tablet,extended release 24 hr .COMPLEX #90 tabs CPAP Pressure Change #1 ea 03/14/24 10/01/24 Rx terbinafine HCl 250 mg tablet 250 mg PO .COMPLEX 06/07/24 10/01/24 History Patient hx anesthesia problems: none Family hx anesthesia problems: none Results Review: All pre-operative results and documents have been reviewed as part of the pre- operative evaluation. [facility] Past Medical History Medical History Allergic rhinitis Cataract History of mammogram (~01/19/17) History of measles History of varicella Nasal obstruction Nasal septal deviation Ovarian cyst (~1971) Wears glasses Surgical History Surgical History History of appendectomy History of hysterectomy (~1980) Hx of colonoscopy 5.17.21/ polyps. repeat in 3 years. Family History Family History Mother Diabetes mellitus, Onset Age: 69 Family history of multiple sclerosis Sibling Depression Father Hypertension Acute myocardial infarction, Onset Age: 72 Cerebrovascular accident Grandparent Carcinoma of colon Family history of malignant neoplasm of uterus Social History Social History Smoking status: Never smoker Second hand tobacco smoke exposure: Yes Alcohol intake: unknown Substance use: never Substance use type: does not use Do You Feel Safe in your Home?: Yes Lack of Transportation: No Lack of Food: Never True Concerned About Future Housing: No Difficulty Paying Gas/Electric Bills: No Difficulty Paying for Meds: No Currently Unemployed: No Education: Bachelor's Degree Difficulty w/ Childcare or Family Care: No Living arrangements: with family Gender identity (if verbalized by the patient): Female Spiritual care concerns: Yes Anes - Eval Final PreProcedure Day of Procedure 10/01/24 08:15 Patient weight: overweight Heart: regular rate and rhythm Lungs: clear to auscultation Airway: Mallampati scale class II Neurological: alert and oriented Last oral intake: >/= 8 hours ASA classification: III Emergent: no Anesthetic plan: proceed Anesthesia type and monitoring: general GIVS and standard monitoring Results Review: All pre-operative results and documents have been reviewed as part of the pre- operative evaluation. Informed Consent: The patient's anesthetic plan and its attendant risks and benefits were discussed with the patient/family/POA. Questions were solicited and answers provided to the satisfaction of the patient/family/POA.
--- NOTE | 2024-10-01 08:44 | PM.HPGS ---
History of Present Illness History of Present Illness Consent: Risks, benefits, and alternatives have been discussed and questions answered. Patient agrees to proceed with procedure. Chief complaint: Pers. Hx. Colon Polyps Narrative: Dayana Mota is a 79 year old female with colon polyp in 2020 Review of Systems Review of Systems: All systems reviewed & are unremarkable except as noted in HPI and below PMFSH Past Medical History Medical History Allergic rhinitis Cataract History of mammogram (~01/19/17) History of measles History of varicella Nasal obstruction Nasal septal deviation Ovarian cyst (~1971) Wears glasses Surgical History Surgical History History of appendectomy History of hysterectomy (~1980) Hx of colonoscopy 5.17.21/ polyps. repeat in 3 years. Family History Family History Mother Diabetes mellitus, Onset Age: 69 Family history of multiple sclerosis Sibling Depression Father Hypertension Acute myocardial infarction, Onset Age: 72 Cerebrovascular accident Grandparent Carcinoma of colon Family history of malignant neoplasm of uterus Social History Social History Smoking status: Never smoker Second hand tobacco smoke exposure: Yes Alcohol intake: unknown Substance use: never Substance use type: does not use Do You Feel Safe in your Home?: Yes Lack of Transportation: No Lack of Food: Never True Concerned About Future Housing: No Difficulty Paying Gas/Electric Bills: No Difficulty Paying for Meds: No Currently Unemployed: No Education: Bachelor's Degree Difficulty w/ Childcare or Family Care: No Living arrangements: with family Gender identity (if verbalized by the patient): Female Spiritual care concerns: Yes Meds Home Medications and Allergies Home Medications Medication Instructions Recorded Confirmed Type cetirizine 10 mg tablet (Zyrtec) 5 mg PO DAILY PRN Allergic Symptoms 12/04/19 10/01/24 History psyllium seed (sugar) oral powder 1 tbsp PO DAILY 12/04/19 10/01/24 History (Metamucil [place] oral powder) acetaminophen 325 mg capsule 325 mg PO Q6H PRN Pain 08/01/20 10/01/24 History (Tylenol) cholecalciferol (vitamin D3) 1,250 See Rx Instructions PO .COMPLEX 12/23/22 10/01/24 History mcg (50,000 unit) capsule cpap #1 ea 07/27/23 10/01/24 Rx metoprolol succinate 50 mg See Rx Instructions .Route 10/27/23 10/01/24 Rx tablet,extended release 24 hr .COMPLEX #90 tabs CPAP Pressure Change #1 ea 03/14/24 10/01/24 Rx terbinafine HCl 250 mg tablet 250 mg PO .COMPLEX 06/07/24 10/01/24 History Allergies Allergy/AdvReac Type Severity Reaction Status Date / Time hydrochlorothiazide Allergy Unknown hyponatremi Verified 10/01/24 08:07 a latex Allergy Unknown Skin Verified 10/01/24 08:07 Reaction lisinopril Allergy Unknown cough Verified 10/01/24 08:07 potassium iodide Allergy Unknown cough Verified 10/01/24 08:07 aspirin AdvReac recurrent Verified 10/01/24 08:07 [From [facility]] nose bleeds: packing, cautery Vital Signs Vital Signs - 24 hr 10/01/24 08:08 Temperature 97.6 F Pulse Rate 86 Respiratory Rate 22 H Blood Pressure 172/84 H Pulse Oximetry 100 Oxygen Delivery Room Air Exam Const: General: comfortable and no acute distress HENMT: Face/Nose/Sinus: Normal nares present Eyes: General: appearance normal, both eyes and all related structures Neck: Neck: no JVD Resp: Auscultation: clear to auscultation bilaterally Cardio: Rate: regular rate Rhythm: regular rhythm GI: Inspection: non-distended GI Palp: Yes Soft to palpation Skin: General skin exam: normal color Neuro: General: gait normal Speech: normal speech Extrem: General: normal to inspection Psych: Mental Status: mental status grossly normal Assessment and Plan Assessment and plan (1) Personal history of colonic polyps: Code(s): Z86.010 - Personal history of colon polyps Status: Acute Assessment and Plan: colonoscopy
[2024-10-01 09:04] VITALS: BP 83/43; PULSE 55; RESP 17; O2SAT 98
[2024-10-01 09:14] VITALS: BP 95/56; PULSE 67; RESP 18; O2SAT 100
[2024-10-01 09:24] VITALS: BP 113/64; PULSE 61; RESP 13; O2SAT 100
== END 2024-10-01 09:34 | disposition home or self-care (01) ==
PROVIDERS: PCP Family Medicine; Referring Provider Obstetrics & Gynecology Gynecology; Visit Provider Internal Medicine Gastroenterology
PROC: 0DJD8ZZ Inspection of Lower Intestinal Tract, Via Natural or Artificial Opening Endoscopic (ICD-10-PCS; CPT 45378; principal; 2024-10-01 09:00)
DX: Z12.11 Encounter for screening for malignant neoplasm of colon (principal); K64.8 Other hemorrhoids; K57.30 Diverticulosis of large intestine without perforation or abscess without bleeding; Z99.89 Dependence on other enabling machines and devices; Z98.890 Other specified postprocedural states; Z86.0100 Personal history of colon polyps, unspecified; Z87.09 Personal history of other diseases of the respiratory system; Z80.0 Family history of malignant neoplasm of digestive organs; Z80.49 Family history of malignant neoplasm of other genital organs; Z82.49 Family history of ischemic heart disease and other diseases of the circulatory system
CPT/HCPCS: G0105; J2704; J7120

== ENCOUNTER 2025-01-07 10:39 | Outpatient (CLI) | payer MEDICARE, SELFPAY ==
--- NOTE | ~2025-01-07 | DEXA_ITS ---
Bone Density Report Name: DANIAL RUFF Age: 79 Sex: Female Ethnicity: White Date of : 1945 Indication: postmenopausal; screening for osteoporosis; height loss; hysterectomy; Referring Provider: DANIEL POLANCO Study: Bone densitometry was performed. Exam Date: January 07, 2025 Accession number: [id number] Bone Density: Region BMD T-score Z-score Classification AP Spine(L1-L4) 1.409 3.3 5.9 Normal Femoral Neck (Left) 0.769 -0.7 1.5 Normal Total Hip (Left) 0.919 -0.2 1.8 Normal Femoral Neck (Right) 0.649 -1.8 0.4 Osteopenia Total Hip (Right) 0.854 -0.7 1.3 Normal Total Hip Mean 0.887 -0.5 1.6 Normal World Health Organization criteria for BMD impression classify patients as: Normal (T-score at or above -1.0), Osteopenia (T-score between -1.0 and -2.5), or Osteoporosis (T-score at or below -2.5). 10-year Fracture Risk(1): Major Osteoporotic Fracture 13% Hip Fracture 3.3% Reported Risk Factors: [place] (), Neck BMD=0.649, BMI=30.0 (1) FRAX(R) Version 3.08. Fracture probability calculated for an untreated patient. Fracture probability may be lower if the patient has received treatment. Clinical Information Provided by Patient: Has used the following medications: Vitamin D Has the following medical conditions: Hysterectomy Patient maximum height was 65.0 Menopause Age: 37 No regular weight bearing exercise Onset of menses at age 12 Number of children 0 Impression: The patient has low bone mass, based on the Right Femoral Neck T-score. The patient has an estimated ten-year risk of hip fracture of 3.3% and an estimated ten-year risk of major fracture of 13%, based on the WHO FRAX algorithm. Discussion: BONE DENSITY IS LOW AT ONE OR MORE SKELETAL SITES. THE PATIENT'S BMD AND CLINICAL RISK FACTORS CONTRIBUTE TO THIS PATIENT'S INCREASED RISK OF FRACTURE. This patient's lowest T-score is low at one or more skeletal sites. It meets the World Health Organization's (WHO) criteria for ?low bone mass? (T-score between -1.0 and -2.5). The patient's 10-year risk of hip fracture as calculated by FRAX exceeds the threshold where pharmacological therapy is recommended by the National Osteoporosis Foundation (NOF). However, all treatment decisions require clinical judgment and consideration of individual patient factors, including patient preferences, comorbidities, previous drug use, risk factors not captured in the FRAX model (e.g., frailty, falls, vitamin D deficiency, increased bone turnover, interval significant decline in bone density) and possible under or overestimation of fracture risk by FRAX. The patient should follow a healthful lifestyle (good nutrition with adequate calcium and vitamin D, and appropriate weight-bearing exercise). Follow-Up: Consider a repeat BMD and Vertebral Fracture Assessment (VFA) exam in 2 years or sooner if medically necessary, to reassess this patient's status. Reported by: ROLY on 01/07/2025 11:09:00 AM. Reviewed, dictated and finalized at location [facility]athe BRADY
--- OUTSIDE RECORDS SUMMARY | 2025-01-07 11:30 | XMS_ITS | Continuity of Care Document ---
Author Organization [facility] Address [address] [place] [address] Phone Care Team Providers Care Baggage Agent Supervisor Name Role Phone Lionel Patel Unavailable Unavailable Procedures Procedure Date Eye Exam & Treatment Refraction Eye Exam & Treatment Refraction Advance Directives Directive Yes / No Effective Date File Name No Information Encounters Encounter Description Practice Location Reason(s) For Visit Diagnoses Date Provider Providers Copied on Encounter [facility], [address] [place] [address] [address], [place], [place], [id number], tel:[phone] [facility] No Information 9-201 0 Jorge Flowers. [address] , [address], [place], [place], [facility] [place], [place]. tel:[phone] [facility], [address] [place] [address] [address], [place], [place], [id number], tel:[phone] [facility] No Information 4-200 8 Jorge Flowers. [address], [place], [address], . tel:[phone] Family History Family Member Type Diagnosis Age At Onset No Information Payers Payer name Insurance type Covered constitution party ID Authoriza tion(s) [employer] [id number] Social History Type Description Quantity Date Captured Comments Sex Female Smoking Status No Information Chief Complaint And Reason For Visit No Information Reason For Referral Reason For Referral No Information History Of Present Illness Encounter Date Complaint History Of Prese nt Illness No Information Functional Status Date Functional Assessmen t No Information Instructions Date Instruction Additional Infor mation No Information Assessments Type Assessment Date No Information Patient Care Teams Name Effective Dates (start - stop) Status Members No Information
== END 2025-01-07 10:40 | disposition home or self-care (01) ==
LOC: ANHIMG 10:40
PROVIDERS: PCP Family Medicine; Visit Provider Obstetrics & Gynecology Gynecology
DX: M85.88 Other specified disorders of bone density and structure, other site (principal); Z78.0 Asymptomatic menopausal state
CPT/HCPCS: 77080

== ENCOUNTER 2025-09-12 10:21 | Outpatient (CLI) | payer MEDICARE, SELFPAY ==
--- NOTE | ~2025-09-12 | MM_ITS ---
EXAMINATION: MM screening jodi BI w virgilio HISTORY: Screening TECHNIQUE: Craniocaudal and mediolateral oblique 3-D tomosynthesis images were obtained and synthetic 2-D images were generated. CAD analysis was submitted and interpreted. COMPARISON: 08/11/2023 BREAST PARENCHYMAL COMPOSITION: There are scattered areas of fibroglandular density. FINDINGS: There is no evidence of suspicious mass, calcification, or architectural distortion to suggest malignancy. There has been no suspicious interval change. IMPRESSION: 1. No mammographic evidence of malignancy. Recommend routine screening mammography in one year. BI-RADS Category 2: Benign finding(s) Reviewed, dictated and finalized at location Q. IMPRESSION: 1. No mammographic evidence of malignancy. Recommend routine screening mammogra phy in one year. BI-RADS Category 2: Benign finding(s)
== END 2025-09-12 10:22 | disposition home or self-care (01) ==
LOC: MICIMG 10:25
PROVIDERS: PCP Family Medicine; Visit Provider Obstetrics & Gynecology Gynecology
DX: Z12.31 Encounter for screening mammogram for malignant neoplasm of breast (principal)
CPT/HCPCS: 77063; 77067